=== PATIENT | female | born 1955 | race Caucasian/White ===

== ENCOUNTER → 2017-11-21 17:45 | Outpatient (CLI) | payer OTHER, SELFPAY ==
--- NOTE | 2017-11-21 | DI.MRI.S_ITS ---
PROCEDURE: MR HEAD/BRAIN WO CON INDICATIONS: LEFT ARM WEAKNESS TECHNIQUE: Non-contrast axial T1 spin echo, axial T2 fast spin echo, sagittal and axial FLAIR, coronal T2 fast spin echo, axial gradient echo, axial diffusion and ADC through the brain. COMPARISON: None. FINDINGS: Image quality: Excellent. CSF spaces: Ventricles appear symmetric in size and shape. Basal cisterns are patent. No extra-axial fluid collections. Brain: No intracranial bleeds or mass effects. There is mild cerebral volume loss for age. Brainstem appears normal. Diffusion-weighted images show no acute ischemic insults. No chronic ischemic insults. Normal intravascular flow voids are present. Skull and face: Calvarial bone marrow is normal in signal. Orbits are normal. Sinuses: Sinuses and mastoids are clear. IMPRESSION: 1. No acute intracranial disease process. 2. No areas of acute or chronic infarction. 3. No abnormal intracranial mass. 4. Mild, diffuse cerebral volume loss. Dictated by: Destinee Cifuentes MD, PhD on 11/24/2017 at 10:02 Approved by: Destinee Cifuentes MD, PhD on 11/24/2017 at 10:05
== END ==
PROVIDERS: PCP Family Medicine; Visit Provider Specialist
DX: R53.1 Weakness (principal)
CPT/HCPCS: 70551

== ENCOUNTER → 2018-03-14 08:53 | Outpatient (CLI) | payer OTHER, SELFPAY ==
--- NOTE | 2018-03-14 | DI.MG.S_ITS ---
BILATERAL DIGITAL SCREENING MAMMOGRAM 3D/2D WITH CAD: 03/14/2018 CLINICAL: Routine screening. Family history of breast cancer. Comparison is made to exam dated: 09/20/2015 mammogram - [facility]. There are scattered fibroglandular elements in both breasts. Current study was also evaluated with a Computer Aided Detection (CAD) system. There is a mass in the right breast at 7 o'clock middle depth. No other significant masses, calcifications, or other findings are seen in either breast. IMPRESSION: INCOMPLETE: NEEDS ADDITIONAL IMAGING EVALUATION The mass in the right breast is indeterminate. Comparison to prior exams as well as additional views with possible ultrasound are recommended. This exam was interpreted at Station ID: [id number]. NOTE: For mammograms, a report in lay terms will be sent to the patient. Approximately 15% of breast malignancies will not be visualized mammographically. In the management of a palpable breast mass, a negative mammogram must not discourage biopsy of a clinically suspicious lesion. Electronically Signed By: Perla lema/alex:03/16/2018 08:47:36 letter sent: Additional Imaging Needed ACR BI-RADS Category 0: Incomplete 3340F
== END ==
PROVIDERS: PCP Family Medicine; Visit Provider Family Medicine
DX: Z12.31 Encounter for screening mammogram for malignant neoplasm of breast (principal); Z80.3 Family history of malignant neoplasm of breast
CPT/HCPCS: 77063; 77067

== ENCOUNTER → 2018-04-16 12:22 | Outpatient (CLI) | payer OTHER, SELFPAY ==
--- NOTE | 2018-04-16 | DI.MG.S_ITS ---
UNILATERAL RIGHT DIGITAL DIAGNOSTIC MAMMOGRAM 3D/2D WITH ADDITIONAL VIEWS: 04/16/2018 CLINICAL: Additional evaluation requested from prior study. Comparison is made to exams dated: 03/14/2018 mammogram - [facility] and 09/20/2015 mammogram - [facility]. There are scattered fibroglandular elements in right breast. Previously identified 0.8 cm oval mass in the right breast at 7 o'clock middle depth of comparison screening mammograms persists with additional views. A linear scar marker overlies the lateral right breast. No significant masses, calcifications, or other findings are seen in the breast. IMPRESSION: INCOMPLETE: NEEDS ADDITIONAL IMAGING EVALUATION Previously identified 0.8 cm oval mass in the right breast at 7 o'clock middle depth of comparison screening mammograms persists with additional views. A targeted ultrasound is recommended for further evaluation, and will be performed immediately following this exam. This exam was interpreted at Station ID: [id number]. NOTE: For mammograms, a report in lay terms will be sent to the patient. Approximately 15% of breast malignancies will not be visualized mammographically. In the management of a palpable breast mass, a negative mammogram must not discourage biopsy of a clinically suspicious lesion. Electronically Signed By: Noah Gordillo M.D. ecl/:04/16/2018 13:16:29 letter sent: Additional Imaging Needed ACR BI-RADS Category 0: Incomplete [id number]
--- NOTE | 2018-04-16 | DI.US.S_ITS ---
LIMITED ULTRASOUND OF RIGHT BREAST: 04/16/2018 CLINICAL: Patient returns today to evaluate a mass in the right breast. Comparison is made to exams dated: 04/16/2018 mammogram, 03/14/2018 mammogram - [facility], and 09/20/2015 mammogram - [facility]. Real-time and Doppler ultrasound of the right breast 7 o'clock region were performed. Beavers scale images of the real-time examination were reviewed. There is 0.5 cm x 0.4 cm x 0.3 cm oval cyst in the right breast at 7 o'clock middle depth 8 cm from the nipple. This oval cyst is hypoechoic with internal echoes and an indistinct margin. This correlates with mammography findings. Color flow imaging demonstrates that there is no vascularity present. IMPRESSION: PROBABLY BENIGN The 0.5 cm x 0.4 cm x 0.3 cm oval cyst in the right breast likely represents a complicated cyst and is probably benign. A follow-up ultrasound in 6 months is recommended to demonstrate stability (10/16/2018). The patient is advised to monitor her breasts and to return sooner for re-evaluation should she feel anything grow or change. This exam was interpreted at Station ID: [id number]. Electronically Signed By: Noah Gordillo M.D. ecl/:04/17/2018 12:34:38 letter sent: Followup Recommended Ultrasound BI-RADS: 3 Probably benign
== END ==
PROVIDERS: PCP Family Medicine; Visit Provider Family Medicine
DX: R92.8 Other abnormal and inconclusive findings on diagnostic imaging of breast (principal); N60.01 Solitary cyst of right breast
CPT/HCPCS: 76642; 77065; G0279

== ENCOUNTER 2019-05-18 11:44 | Day surgery (SDC) | payer OTHER, SELFPAY ==
[2019-05-18 12:19] VITALS: BP 139/80; PULSE 106; RESP 16; TEMP 36.3; O2SAT 97; BMI 24.8
[2019-05-18] MEDS: SODIUM CHLORIDE 0.9% 1,000 ML 200 ML IV (12:32)
--- NOTE | 2019-05-18 12:57 | PM.HP.1 ---
History of Present Illness History of Present Illness Date Patient Seen: 05/18/19 Time Patient Seen: 12:57 Chief complaint: [id number] SCREENING COLONOSCOPY Narrative: This is a 63-year-old woman who has never had a screening colonoscopy. She denies any family history of colon cancer or colon polyps. She denies any personal history of melena, hematochezia, unexplained weight loss, abdominal pain, her other concerning symptoms. She has COPD which is well controlled on her inhalers. She denies any other complaints. ROS: Thirteen system review is negative other than as mentioned below and in HPI. PE: GENERAL: Well groomed and cooperative. Appears stated age. Answers questions promptly and appropriately. Vital signs noted. HENT: Normocephalic, atraumatic. Hearing intact. Oral mucosa is pink and moist. EYES: Conjunctiva pink, sclera white, no periorbital swelling. CARDIOVASCULAR: Regular rate. No pedal edema. RESPIRATORY: Normal respiratory rate, breathing comfortably on room air. GASTROINTESTINAL: Abdomen soft and non-distended GENITALURINARY: No flank tenderness. MUSCULOSKELETAL: Equal tone and mass bilaterally. SKIN: Warm, dry, soft, appropriate color for ethnicity. No other lesions, rashes, or wounds. NEURO: Alert and Oriented X 3. No gross sensory deficits, or cognitive issues. PSYCH: Appropriate affect and mood. Patient History Medical History Asthma (Acute) COPD (chronic obstructive pulmonary disease) (Acute) Migraine (Acute) Family & Social History Social History: household members spouse Tobacco & Substance use: Smoking Status Never smoker Meds Home Medications and Allergies Home Medications Medication Instructions Recorded Confirmed Type Spiriva with HandiHaler 1 puff INH QDAY #0 10/14/17 05/18/19 History Symbicort 1 inh INH BID #0 10/14/17 05/18/19 History symdaxajmj-gkzrkgmtmgpvd-ykax 1 tab PO Q4HR PRN #0 10/14/17 05/18/19 History fluoxetine 20 mg PO QDAY #0 10/14/17 05/18/19 History levalbuterol HCl 0.62 mg INHALATION Q4HR PRN #0 10/14/17 05/18/19 History verapamil 240 mg PO QDAY #0 10/14/17 05/18/19 History topiramate 25 mg tablet 25 mg PO DAILY #42 tab 12/17/17 05/18/19 Rx ospemifene 1 tab PO DAILY 02/04/19 05/18/19 History montelukast [Singulair] 10 mg PO DAILY 05/18/19 05/18/19 History trazodone 100 mg PO BEDTIME 05/18/19 05/18/19 History Allergies Allergy/AdvReac Type Severity Reaction Status Date / Time duloxetine [From Cymbalta] Allergy Severe seizures Verified 02/04/19 09:43 yane [YANE] Allergy Severe HIVES Verified 05/18/19 12:11 Exam Vital Signs (past 8 hours): - 05/18/19 12:19 Temperature 97.3 F L Pulse Rate 106 H Respiratory Rate 16 Blood Pressure 139/80 Pulse Oximetry 97 Oxygen Delivery Method Room Air Assessment & Plan Assessment and plan (1) At average risk for colon cancer: Problem details: This is a 63 woman who has never had a screening colonoscopy. She has a diverted risk for colon cancer. Risks and benefits of screening colonoscopy and possible polypectomy were discussed including risk of bleeding, perforation, need for surgical repair, need for additional procedures. The patient desires to proceed with colonoscopy and polypectomy. Plan: Proceed to endoscopy suite for colonoscopy Current visit: Yes Status: Acute
[2019-05-18] MEDS: MIDAZOLAM 5 MG/5 ML VIAL IV (13:04)
[2019-05-18] MEDS: fentaNYL 250 MCG/5 ML INJ IV (13:05)
--- NOTE | 2019-05-18 13:28 | PM.OP.ENDO ---
Operative Date/Time/Diagnoses Date of procedure: 05/18/19 Time of procedure: 13:28 Pre-op diagnosis: Average risk for colon cancer, never had a screening colonoscopy Procedure & Clinicians Study performed: Screening colonoscopy Same procedure as scheduled: Yes Indications: Age [age], never had a colonoscopy Surgeon: Janine Bey Procedure Notes SCOAP/Timeout: Performed Procedure in detail: The patient was brought to the room and placed in left lateral decubitus position with all bony prominences padded. A time-out was performed and then the patient was given procedural sedation starting with [4] mg of Versed and [100] mcg of fentanyl. Vitals were monitored throughout the procedure and remained stable. Once adequately sedated the procedure was begun. A rectal exam was performed revealing [no abnormalities]. The colonoscope was then introduced to the rectum and advanced to the cecum in the usual fashion. []The cecum was identified by the appendiceal orifice, the mucosal try fold, and the ileocecal valve. The scope was then retracted while rotating side to side and examining each mucosal fold. [] At the conclusion procedure retroflexion was performed and [small grade 2 internal hemorrhoids without stigmata of bleeding were seen]. The scope was then withdrawn from the rectum the procedure was concluded. The patient tolerated the procedure well was transferred to the PACU in stable condition. Scope withdrawal time: 14 Sedation minutes: 25 Specimen(s): none sent Complications: none Impression: Normal colon, grade 2 internal hemorrhoids Post-procedure Recommendations: Colonscopy in 10 years Follow up: as needed Disposition: PACU
[2019-05-18 13:32] VITALS: BP 111/77; PULSE 93; RESP 20; TEMP 36.5; O2SAT 97
[2019-05-18 13:37] VITALS: BP 109/66; PULSE 98; RESP 20; O2SAT 98
[2019-05-18 13:42] VITALS: BP 129/73; PULSE 88; RESP 18; O2SAT 95
[2019-05-18 13:44] VITALS: BP 115/72; PULSE 86; RESP 18; TEMP 36.3; O2SAT 98
== END 2019-05-18 14:01 | disposition home or self-care (01) ==
PROVIDERS: Family Provider Student in an Organized Health Care Education/Training Program; PCP Student in an Organized Health Care Education/Training Program; Visit Provider Surgery
PROC: 0DJD8ZZ Inspection of Lower Intestinal Tract, Via Natural or Artificial Opening Endoscopic (ICD-10-PCS; CPT 45378; principal; 2019-05-18 13:00)
DX: Z12.11 Encounter for screening for malignant neoplasm of colon (principal); J44.9 Chronic obstructive pulmonary disease, unspecified; K64.1 Second degree hemorrhoids
CPT/HCPCS: 45378; 99152; J2250; J3010

== ENCOUNTER → 2020-02-01 11:01 | Outpatient (CLI) | payer OTHER, SELFPAY ==
--- NOTE | 2020-02-01 | DI.RAD.S_ITS ---
PROCEDURE: XR HIP W PEL IF DONE LT 2V INDICATIONS: LEFT HIP PAIN TECHNIQUE: AP pelvis with lateral view(s) of the left hip(s). COMPARISON: None. FINDINGS: Bones: No fractures or dislocations. Pelvic ring appears intact. No suspicious bony lesions. Moderate bilateral hip and sacroiliac joint degeneration. Moderate degenerative disc disease in the lower lumbar spine. Soft tissues: The visualized bowel gas pattern is normal. No suspicious soft tissue calcifications. IMPRESSION: Moderate degenerative joint disease in hips and sacroiliac joints bilaterally. Dictated by: Errol Roca M.D. on 02/01/2020 at 14:09 Approved by: Errol Roca M.D. on 02/01/2020 at 14:18
== END ==
PROVIDERS: Family Provider Student in an Organized Health Care Education/Training Program; PCP Student in an Organized Health Care Education/Training Program; Referring Provider Student in an Organized Health Care Education/Training Program; Visit Provider Student in an Organized Health Care Education/Training Program
DX: M25.552 Pain in left hip (principal); M16.0 Bilateral primary osteoarthritis of hip; M47.818 Spondylosis without myelopathy or radiculopathy, sacral and sacrococcygeal region
CPT/HCPCS: 73502

== ENCOUNTER → 2020-04-11 10:59 | Outpatient (CLI) | payer OTHER, SELFPAY ==
--- NOTE | 2020-04-11 | DI.RAD.S_ITS ---
PROCEDURE: XR HIP W PEL IF DONE LT MIN 4V INDICATIONS: BILATERAL HIP PAIN WORSENING OVER LAST 2 MONTHS TECHNIQUE: AP pelvis with lateral view(s) of the left hip(s). COMPARISON: [facility], , XR HIP W PEL IF DONE LT 2V, 02/01/2020, 11:01. FINDINGS: Bones: No fractures or dislocations. Pelvic ring appears intact. No suspicious bony lesions. Moderate right and mild left degenerative narrowing within the hip joints. Minimal periarticular osteophytes are present. Soft tissues: The visualized bowel gas pattern is normal. No suspicious soft tissue calcifications. IMPRESSION: Osteoarthritic changes within the hips bilaterally as above. Dictated by: Ankita Gonzalez M.D. on 04/11/2020 at 15:27 Approved by: Ankita Gonzalez M.D. on 04/11/2020 at 15:27
== END ==
PROVIDERS: Family Provider Student in an Organized Health Care Education/Training Program; PCP Student in an Organized Health Care Education/Training Program; Referring Provider Student in an Organized Health Care Education/Training Program; Visit Provider Student in an Organized Health Care Education/Training Program
DX: M25.551 Pain in right hip (principal); M25.552 Pain in left hip
CPT/HCPCS: 73522

== ENCOUNTER → 2020-06-09 08:46 | Outpatient (CLI) | payer OTHER, SELFPAY ==
[2020-06-09 09:14] LABS: Add Manual Diff / Slide Review NO; Basophils Absolute Auto 100 /uL (0-100); Basophils Percent Auto 1.3 % (0-2); Eosinophils Absolute Auto 100 /uL (0-450); Hematocrit 39.1 % (36-46); Hemoglobin 13.1 g/dL (12.0-16.0); Lymphocytes Absolute Auto 1700 /uL (1100-4500); Lymphocytes Percent Auto 39.1 % (25-40); Mean Corpuscular HGB Conc 33.4 % (30-36); Mean Corpuscular Hemoglobin 31.4 PG (26-34); Mean Corpuscular Volume 94.1 fL (80-100); Monocytes Absolute Auto 300 /uL (0-900); Monocytes Percent Auto 6.4 % (3-14); Neutrophils Absolute Auto 2200 /uL (1500-7000); Neutrophils Percent Auto 51.2 % (50-75); Platelet Count 218 X10^3/uL (150-400); Red Blood Cell Count 4.15 X10^6/uL (4.0-5.2); Red Cell Distribution Width 12.3 % (11.6-14.8); White Blood Cell Count 4.3 X10^3/uL (4.5-11.0)
[2020-06-09 09:36] LABS: Alanine Aminotransferase 23 IU/L (<35); Albumin 4.3 g/dL (3.5-5.0); Albumin Globulin Ratio 1.7 (1.0-2.8); Alkaline Phosphatase 88 U/L (38-126); Aspartate Aminotransferase 27 IU/L (14-36); BUN Creatinine Ratio 14.1 (6-22); Bilirubin Total 0.3 mg/dL (0.2-1.3); Blood Urea Nitrogen 11 mg/dL (7-17); Calcium 10.1 mg/dL (8.4-10.2); Carbon Dioxide 28 mmol/L (22-32); Chloride 109 mmol/L (98-107); Cholesterol 232 mg/dL (140-199); Estimated Glomerular Filt Rate > 60.0 mL/min (>60); Globulin 2.6 g/dL (1.7-4.1); Glucose 106 mg/dL (80-110); HDL Cholesterol 43 mg/dL (40-60); HEMOLYSIS < 15 (0-50); LDL Cholesterol Calculated 134 mg/dL (<100); Potassium 4.5 mmol/L (3.4-5.1); Sodium 140 mmol/L (137-145); Total Protein 6.9 g/dL (6.3-8.2); Triglycerides 273 mg/dL (35-150)
[2020-06-09 10:04] LABS: TSH w/ Reflex to FT4 1.98 uIU/mL (0.47-4.68)
== END ==
PROVIDERS: Family Provider Student in an Organized Health Care Education/Training Program; PCP Internal Medicine; Referring Provider Internal Medicine; Visit Provider Internal Medicine
DX: M15.0 Primary generalized (osteo)arthritis (principal); F33.41 Major depressive disorder, recurrent, in partial remission; R53.82 Chronic fatigue, unspecified; J45.40 Moderate persistent asthma, uncomplicated
CPT/HCPCS: 36415; 80053; 80061; 84443; 85025

== ENCOUNTER → 2020-06-26 09:34 | Outpatient (CLI) | payer OTHER, SELFPAY ==
--- NOTE | 2020-06-26 09:35 | DI.RAD.S_ITS ---
PROCEDURE: FL BARIUM SWALLOW INDICATIONS: Gastro-esophageal reflux disease with esophagitis, COMPARISON: None. FINDINGS: Function: There is mildly abnormal esophageal peristalsis with mild tertiary contractions. No elicited gastroesophageal reflux. The morphology of the distal esophagus is consistent with prior fundoplication. reported prior fundoplication. There is no sign of abnormal morphology that would suggest fundoplication dehiscence. Morphology: Air-contrast images demonstrate normal mucosal morphology. Single contrast views show no esophageal strictures, extrinsic mass effects, or diverticula. Limited images of the stomach demonstrate normal appearance. IMPRESSION: Mild episodic dysmotility, no evidence of hiatal hernia, fundoplication dehiscence, or appreciable reflux. Dictated by: Rojelio Juarez M.D. on 06/26/2020 at 15:11 Approved by: Rojelio Juarez M.D. on 06/26/2020 at 15:54
== END ==
PROVIDERS: Family Provider Student in an Organized Health Care Education/Training Program; PCP Internal Medicine; Referring Provider Internal Medicine; Visit Provider Internal Medicine
DX: K21.00 Gastro-esophageal reflux disease with esophagitis, without bleeding (principal); K22.4 Dyskinesia of esophagus; M81.0 Age-related osteoporosis without current pathological fracture; Z78.0 Asymptomatic menopausal state; Z90.722 Acquired absence of ovaries, bilateral
CPT/HCPCS: 74220; 77080

== ENCOUNTER → 2020-08-16 10:47 | Outpatient (CLI) | payer OTHER, SELFPAY ==
[2020-08-16 11:50] LABS: Add Manual Diff / Slide Review NO; Basophils Absolute Auto 100 /uL (0-100); Eosinophils Absolute Auto 100 /uL (0-450); Eosinophils Percent Auto 1.7 % (2-4); Hematocrit 42.2 % (36-46); Hemoglobin 13.8 g/dL (12.0-16.0); Lymphocytes Absolute Auto 2000 /uL (1100-4500); Lymphocytes Percent Auto 35.6 % (25-40); Mean Corpuscular HGB Conc 32.8 % (30-36); Mean Corpuscular Volume 94.6 fL (80-100); Monocytes Absolute Auto 400 /uL (0-900); Monocytes Percent Auto 6.6 % (3-14); Neutrophils Absolute Auto 3000 /uL (1500-7000); Neutrophils Percent Auto 55.1 % (50-75); Platelet Count 245 X10^3/uL (150-400); Red Blood Cell Count 4.46 X10^6/uL (4.0-5.2); Red Cell Distribution Width 12.8 % (11.6-14.8); White Blood Cell Count 5.5 X10^3/uL (4.5-11.0)
[2020-08-16 12:02] LABS: Alanine Aminotransferase 17 IU/L (<35); Albumin 4.6 g/dL (3.5-5.0); Albumin Globulin Ratio 1.6 (1.0-2.8); Alkaline Phosphatase 94 U/L (38-126); Aspartate Aminotransferase 24 IU/L (14-36); Bilirubin Total 0.3 mg/dL (0.2-1.3); Blood Urea Nitrogen 12 mg/dL (7-17); Calcium 10.6 mg/dL (8.4-10.2); Carbon Dioxide 26 mmol/L (22-32); Chloride 107 mmol/L (98-107); Cholesterol 253 mg/dL (140-199); Estimated Glomerular Filt Rate > 60.0 mL/min (>60); Globulin 2.8 g/dL (1.7-4.1); Glucose 105 mg/dL (80-110); HDL Cholesterol 52 mg/dL (40-60); HEMOLYSIS < 15 (0-50); LDL Cholesterol Calculated 151 mg/dL (<100); Potassium 4.1 mmol/L (3.4-5.1); Sodium 138 mmol/L (137-145); Total Protein 7.4 g/dL (6.3-8.2); Triglycerides 249 mg/dL (35-150)
[2020-08-16 12:41] LABS: TSH w/ Reflex to FT4 0.74 uIU/mL (0.47-4.68)
== END ==
PROVIDERS: Family Provider Student in an Organized Health Care Education/Training Program; PCP Internal Medicine; Referring Provider Internal Medicine; Visit Provider Internal Medicine
DX: M15.0 Primary generalized (osteo)arthritis (principal); J45.40 Moderate persistent asthma, uncomplicated; R53.82 Chronic fatigue, unspecified; F33.41 Major depressive disorder, recurrent, in partial remission
CPT/HCPCS: 36415; 80053; 80061; 84443; 85025

== ENCOUNTER → 2022-02-19 08:55 | Outpatient (CLI) | payer OTHER, SELFPAY ==
--- NOTE | 2022-02-19 | DI.RAD.S_ITS ---
PROCEDURE: XR HIP W PEL IF DONE LT 2V INDICATIONS: Pain in left hip TECHNIQUE: AP pelvis with lateral view(s) of the left hip(s). COMPARISON: [facility], [place], XR HIP W PEL IF DONE BEHZAD 3TO4V, 04/11/2020, 11:02. FINDINGS: Bones: No fractures or dislocations. Mild bilateral hip joint osteoarthritic changes are seen with superior joint space narrowing and subchondral sclerosis. No evidence of avascular necrosis of femoral head. Pelvic ring appears intact. No suspicious bony lesions. Soft tissues: The visualized bowel gas pattern is normal. No suspicious soft tissue calcifications. IMPRESSION: Mild right worse than left bilateral hip joint osteoarthritis. No fracture or dislocation. No evidence of avascular necrosis. Dictated by: Dev Avila M.D. on 02/19/2022 at 10:24 Approved by: Dev Avila M.D. on 02/19/2022 at 10:25
== END ==
PROVIDERS: PCP Internal Medicine; Referring Provider Internal Medicine; Visit Provider Internal Medicine
DX: M25.552 Pain in left hip (principal); M16.0 Bilateral primary osteoarthritis of hip
CPT/HCPCS: 73502

== ENCOUNTER → 2023-06-06 13:19 | Outpatient (CLI) | payer OTHER, SELFPAY ==
--- NOTE | 2023-06-06 | DI.MG.S_ITS ---
BILATERAL DIGITAL SCREENING MAMMOGRAM 3D/2D WITH CAD: 06/06/2023 CLINICAL: Routine screening. Family history of breast cancer. Comparison is made to exams dated: 04/16/2018 mammogram, 03/14/2018 mammogram - , and 09/20/2015 [facility]ogram [facility]. There are scattered areas of fibroglandular density in both breasts (category b / 25%-50% glandular tissue). Current study was also evaluated with a Computer Aided Detection (CAD) system. No significant masses, calcifications, or other findings are seen in either breast. There has been no significant interval change. IMPRESSION: NEGATIVE There is no mammographic evidence of malignancy. A 1 year screening mammogram is recommended. Based on the Tyrer Cuzick model (a risk assessment model) the patient's lifetime risk is 10.0% and her 10 year risk is 5.6%. According to the ACR, ACS, and NCCN guidelines, an annual breast MRI exam along with mammogram is recommended if the patient's lifetime risk is 20% or greater. This exam was interpreted at Station ID: [id number]. NOTE: For mammograms, a report in lay terms will be sent to the patient. Approximately 15% of breast malignancies will not be visualized mammographically. In the management of a palpable breast mass, a negative mammogram must not discourage biopsy of a clinically suspicious lesion. Electronically Signed By: Jennifer Cuenca M.D., PH.D domenic/alex:06/06/2023 18:29:48 letter sent: Normal Exam ACR BI-RADS Category 1: Negative [id number]
== END ==
PROVIDERS: PCP Internal Medicine; Referring Provider Internal Medicine; Visit Provider Internal Medicine
DX: Z12.31 Encounter for screening mammogram for malignant neoplasm of breast (principal); Z80.3 Family history of malignant neoplasm of breast
CPT/HCPCS: 77063; 77067